=== PATIENT | female | born 1950 | race Caucasian/White ===

== ENCOUNTER 2021-04-05 15:10 | Outpatient (CLI) | payer MEDICARE, BC | END 2021-04-05 15:11 | disposition home or self-care (01) | LOC: CSHMAMMO 15:10 | PROVIDERS: ATTEND Family Medicine | DX: Z12.31 Encounter for screening mammogram for malignant neoplasm of breast (principal) | CPT/HCPCS: 77063; 77067 ==

== ENCOUNTER 2022-04-30 13:57 | Outpatient (CLI) | payer MEDICARE, BC | END 2022-04-30 13:58 | disposition home or self-care (01) | LOC: CSHMAMMO 13:57 | PROVIDERS: ATTEND Family Medicine | DX: Z12.31 Encounter for screening mammogram for malignant neoplasm of breast (principal); R92.0 Mammographic microcalcification found on diagnostic imaging of breast | CPT/HCPCS: 77063; 77067 ==

== ENCOUNTER → 2022-05-08 | Day surgery (SDC) | payer MEDICARE, BC | LOC: CSHMAMMO 08:02 | PROVIDERS: ATTEND Plastic Surgery | PROC: 0H9T3ZX Drainage of Right Breast, Percutaneous Approach, Diagnostic (ICD-10-PCS; principal; 2022-05-08) | DX: N60.81 Other benign mammary dysplasias of right breast (principal); N60.11 Diffuse cystic mastopathy of right breast; N62 Hypertrophy of breast | CPT/HCPCS: 19081; 76098; 88305 ==

== ENCOUNTER 2023-06-05 13:35 | Outpatient (CLI) | payer MEDICARE, BC | END 2023-06-05 13:36 | disposition home or self-care (01) | LOC: CSHMAMMO 13:35 | PROVIDERS: ATTEND Family Medicine | DX: Z12.31 Encounter for screening mammogram for malignant neoplasm of breast (principal) | CPT/HCPCS: 77063; 77067 ==